=== PATIENT | female | born 1965 | race Caucasian/White ===

== ENCOUNTER → 2017-11-30 | Outpatient (CLI) | payer OTHER ==
[~2017-11-30] MED LIST: AMITRIPTYLINE H10 M3 PO; BUTRANS1 EAC1 TRANSDERM; BUTRANS1 EAC2 TRANSDERM; DOXEPIN HCL10 MG PO; IBUPROFEN 800800 M1 PO; NORCO 7.5-3251 EACH PO; OMEPRAZOLE20 MG PO; ONDANSETRON HCL4 M2 PO; XANAX 0.5 MG0.5 MG PO
--- NOTE | 2017-12-22 16:43 | PAINCON ---
[address] [address] PAIN MANAGEMENT CONSULTATION Name: YANDEL CORMIER Room: [facility] Kiera#: [id number] Admission: 11/30/17 Attend Phys: Kari Macias MD Discharge: Date of : 69 Report #: [id number] THIS REPORT FOR: //name// CC: Kari Allen DATE OF SERVICE: 12/13/2017 CHIEF COMPLAINT: Chronic pain. It hurt allover. HISTORY OF PRESENT ILLNESS: The patient is a 52-year-old female who has been referred to the pain clinic for evaluation. The patient states that she has had pain and discomfort with problems of pain because of fibromyalgia and others over the past 10 years. Notes that she hurts "from head to toe. She rates her pain at a 7/7-8/10. Notes that most activities, walking, lifting, standing, climbing stairs, bending can exacerbate her discomfort. By that medications, heat and rest can be of some benefit. Has used hydrocodone 7.5 mg 4 tablets daily. Also, finds that Xanax can be helpful with her situation. The patient states that she has heard of CBD oil. She gave this medication a try. She is not sure how much benefit she gleaned from it. She states that she has had physical therapy in the past on 2 occasions. She does suffer from depression. As a general anxiety history. She is bothered by irritable bowel syndrome. ALLERGIES: BUPROPION AND ESCITALOPRAM MEDICATIONS: Omeprazole 20 mg, hydrocodone 7.5 mg q. 8 hours, ondansetron 4 mg, Xanax 0.5 mg 1-2 tablets p.r.n., ibuprofen 800 mg q. 8 hours, Augmentin, and prednisone 20 mg. PAST MEDICAL HISTORY: 1. Anxiety. 2. Breast cancer. 3. Schizophrenia, chronic pain syndrome. 4. Fibromyalgia. 5. Gastroesophageal reflux disease. 6. Headaches.7 7. Irritable bowel. PAST SURGICAL HISTORY: LEEP cervix 2001, bilateral mastectomies on 01/11/2008, radiation treatment tamoxifen, and breast reconstruction in 2008. Back muscle moved to the anterior chest wall in 2008. SOCIAL HISTORY: She works at the [employer]. Her is being treated for bone cancer. Stopped smoking in 1995. 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 [place] [address] PAIN MANAGEMENT CONSULTATION Name: YANDEL CORMIER Room: [facility]#: [id number] Admission: 11/30/17 Attend Phys: Kari Macias MD Discharge: Date of : 69 Report #: [id number] REVIEW OF SYSTEMS: Questionnaire fatigue, weakness, headaches, wears glasses, blurred vision, cataract/6 glaucoma, hearing loss/ringing in the ears, chronic sinus problems, sore throat, voice changes, palpitations, swelling of feet, nausea, painful bowel movements, rectal bleeding and stool, abdominal pain, awakens at night to urinate, incontinence, memory loss, nervousness, depression, numbness and tingling sensation and frequent recurring headaches, lightheadedness, dizziness, rash, skin changes, change in hair and nails. MUSCULOSKELETAL: Joint pain, joint stiffness, weakness of muscles, muscle pain with cramps, back pain, difficulty walking. LABORATORY DATA: No laboratory tests were available at the time of our interview. PAIN CLINIC ASSESSMENT: 1. The patient is not being treated for osteoarthritis or rheumatoid arthritis. 2. Height 5 feet 4 inches. Weight 164 pounds, BMI is 28. 3. Vital signs: Blood pressure 114/74, heart rate 96, respiratory rate 16, room air saturation 98%, temperature 98.5. 4. Pain score 7/10. 5. Fall risk. The patient has not fallen in the last 3 months. 6. Blood thinner. The patient is not on a blood thinning medication. 7. History of hypertension. The patient is not being treated for hypertension. 8. Opioid therapy greater than 6 weeks. The patient has been on opioid therapy for quite some time. 9. Risk assessment tool. 10. Functional assessment tool. 11. Recreational drug use. The patient denies use of recreational drugs. 12. Tobacco: The patient smokes 20 years, has stopped in 1995. 13. Alcohol: The patient denies frequent use of alcoholic beverages. PHYSICAL EXAMINATION: GENERAL: The patient is a well-developed, well-nourished white female. Appears her stated age. HEENT: Normocephalic, atraumatic. Extraocular eye muscles intact. Mucous membranes are moist. NECK: Without adenopathy or JVD. HEART: Regular rate. S1, S2. LUNGS: Clear to auscultation. ABDOMEN: generally Nontender. MUSCULOSKELETAL: In the upper extremities showed to be 5/5 for the major muscle groups in the upper extremity. The patient has some generalized back pain as well as arm pain, low back pain is present. Has pursed described by the patient's lower extremity muscle strength is judged to be 5/5 for the major muscle groups in the lower extremity. The patient complains of some generalized pain in these areas. Complains of pain and discomfort in the left as well as a right forearm, posterior lumbar area as well as down the posterior portion of [place] [address] [address] PAIN MANAGEMENT CONSULTATION Name: YANDEL CORMIER Room: [facility] AND[facility] GrewalEstherOlga.#: [id number] Admission: 11/30/17 Attend Phys: Kari Macias MD Discharge: Date of : 69 Report #: [id number] her buttocks and into the calf pins and needle sensation in her feet. IMPRESSION: 1. Chronic pain syndrome. 2. Anxiety. 3. Breast cancer. 4. Schizophrenia, chronic pain syndrome. 5. Fibromyalgia. 6. Gastroesophageal reflux disease. 7. Headaches. 8. Irritable bowel. RECOMMENDATIONS: We discussed that [facility] rolling on opioid use. The patient has had pain and discomfort, which has been problematic over the last 10 years. She has had a mild increase in the amount of opioids that she is using a period of time. She initially started out at 5 mg hydrocodone and is at 7.5 mg at this juncture, has pain in her hip. She has had bilateral mastectomies and cancer treatment. Finds that her pain is quite problematic given the past years and in conjunction with family stressors. Her has bone cancer, brother is positive for bipolar syndrome. At this juncture, we will consider the patient suture. We will consider providing her opioid medications and enable her to stay gainfully employed. We have discussed the treatment for fibromyalgia, which includes physical therapy staying active 3 times a week with exercise, taking antidepressants, anticonvulsant medications such as Lyrica, gabapentin, Cymbalta, amitriptyline. The patient will call us. She will follow up in the pain clinic. She will call us if she has any concerns. We would like to thank you for letting us participate in her care. We hope she continues to improve. <ELECTRONICALLY SIGNED> By: Kari Macias MD 12/22/17 1643 [id number]. Christian Macias MD /nt
== END ==
LOC: M.PC 04:57
DX: G89.4 Chronic pain syndrome (principal); C50.919 Malignant neoplasm of unspecified site of unspecified female breast; K21.9 Gastro-esophageal reflux disease without esophagitis; F41.9 Anxiety disorder, unspecified; R51 Headache; M79.7 Fibromyalgia; F20.9 Schizophrenia, unspecified; K58.9 Irritable bowel syndrome, unspecified

== ENCOUNTER → 2017-12-14 | Outpatient (CLI) | payer OTHER ==
--- NOTE | 2017-12-22 16:41 | PAINCON ---
[address] [address] PAIN MANAGEMENT CONSULTATION Name: YANDEL CORMIER Room: [facility]RE[facility] Qureshi#: [id number] Admission: 12/14/17 Attend Phys: Kari Macias MD Discharge: Date of : 69 Report #: [id number] THIS REPORT FOR: //name// CC: Kari Allen DATE OF SERVICE: 12/14/2017 FOLLOWUP HISTORY: "I feel little better than I did at the last visit". FOLLOWUP HISTORY: The patient is a 52-year-old female who has been referred to the pain clinic for evaluation of chronic pain. The patient has pain and discomfort in her back, lower and upper as well as pain and discomfort in the posterior portion of her legs. She suffers from fibromyalgia. She continues to work on a regular basis. She has been using hydrocodone. She feels that the hydrocodone is helpful, takes about 3 times a day. Ibuprofen, Motrin, Zofran, and Xanax are helpful. The patient was given a dosing for use of Gralise. Gralise is a gabapentin medication, which is slowly released over a period of time, mostly for who are sensitive of medications find that this one is usually well tolerated. The patient had some problems with his medication and that it made her too sleepy. She states that she gets up quite early in the morning. Works at the [employer]. Had some problems navigating around in the morning with this medication on board. She stopped taking it. She has considered use of Lyrica and Cymbalta. Her insurance companies have declined that medication. ALLERGIES: No known drug allergies. CURRENT MEDICATIONS: Alprazolam 0.5 mg daily, hydrocodone 7.5 mg 1 p.o. q.8 hours p.r.n., ibuprofen 800 mg, omeprazole 20 mg b.i.d., and Zofran 4 mg. PAIN CLINIC ASSESSMENT: 1. The patient is not being treated for osteoarthritis or rheumatoid arthritis. 2. Height 5 feet 4 inches, weight 165 pounds, BMI is 28.4. 3. Vital signs: Blood pressure 106/68, heart rate 88, respiratory rate 16, room air saturation 100%, temperature 98.2. Pain intensity 11/02. 4. Fall risk. The patient has not fallen in the last 3 months. 5. Blood thinner. The patient is not on a blood thinning medication. 6. Opioid medications The patient receives her medications from one physician. 7. Risk assessment tool. 8. Functional assessment tool. 9. Recreational drug use. The patient denies use of recreational drugs. 10. Tobacco: The patient denies use of tobacco. 11. Alcohol: The patient denies frequent use of alcoholic beverages. PHYSICAL EXAMINATION: GENERAL: The patient is a well-developed, well-nour[place] [address] PAIN MANAGEMENT CONSULTATION Name: YANDEL CORMIER JOSE R [facility] [id number] Admission: 12/14/17 Attend Phys: Kari Macias MD Discharge: Date of : 69 Report #: [id number] her stated age. She is alert, oriented x3. Affect is appropriate. The patient is less emotional at this visit. She is not crying. States that things are better then they were last week when she initially saw us. HEENT: Normocephalic, atraumatic. Extraocular eye muscles intact. Sclerae nonicteric. Mucous membranes are moist. NECK: Good range of motion. The patient is without adenopathy. LUNGS: Clear to auscultation. HEART: Regular rate. S1, S2. ABDOMEN: Nontender. EXTREMITIES: Muscle strength is judged to be 5/5 for the major muscle groups in the upper extremity and 5+ for the lower extremities. 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 Deep tendon reflexes are trace bilaterally, trace at the knees, muscle symmetry is within normal limits in the upper as well as the lower extremities. IMPRESSION: 1. Chronic pain, fibromyalgia. 2. History of breast cancer, status post radiation and double mastectomy. 3. Anxiety. 4. GERD. 5. Headaches. 6. History of herpes zoster ophthalmicus. 7. Hypercholesterolemia. 8. Irritable bowel syndrome. 9. Nummular eczema. 10. Seasonal allergies. RECOMMENDATIONS: We discussed treatment options with the patient. At this juncture, we will try the patient more on a conservative approach. A script for hydrocodone has been written. The patient will also try amitriptyline 10 mg. She will try this on the weekend. Hopefully, she will find that she is able to tolerate this to gain benefit and not have side effects. Also, the patient will try buprenorphine patches to her skin. One patch per week. She will call us if she has any problems and a script for hydrocodone 7.5 mg 1 p.o. q. 8 hours has been written. We would like to thank you for letting us participate in her care. We hope she continues to improve. <ELECTRONICALLY SIGNED> By: Kari Macias MD 12/22/17 1641 [id number]. Christian Macias MD /nt
== END ==
LOC: M.PC 04:49
DX: M54.5 Low back pain (principal); G89.29 Other chronic pain; E78.00 Pure hypercholesterolemia, unspecified; K21.9 Gastro-esophageal reflux disease without esophagitis; F41.9 Anxiety disorder, unspecified; K58.9 Irritable bowel syndrome, unspecified; L30.9 Dermatitis, unspecified; J30.2 Other seasonal allergic rhinitis; R51 Headache; Z85.3 Personal history of malignant neoplasm of breast

== ENCOUNTER → 2018-01-11 | Outpatient (CLI) | payer OTHER ==
--- NOTE | 2018-02-07 10:00 | PAINCON ---
[address] [address] PAIN MANAGEMENT CONSULTATION Name: YANDEL CORMIER Room: [facility] Qureshi#: [id number] Admission: 01/11/18 Attend Phys: Kari Macias MD Discharge: Date of : 69 Report #: [id number] THIS REPORT FOR: //name// CC: Kari Allen DATE OF SERVICE: 01/11/2018 FOLLOWUP COMPLAINT: The pain medicine was working pretty well, but started to have some problems with it. 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 She has problems with chronic pain involving her low back. She also suffers from fibromyalgia. Continues to work on a regular basis. Does not find that her use of hydrocodone caused any clouding or problems with mentation, was using amitriptyline. It was felt that this medication caused the headache. She stopped taking it. Finds that her pain improves significantly with a combination of hydrocodone and Butrans (buprenorphine 10 mcg patches, place the patch on . Did relatively well and was doing quite well until about Wednesday. It was felt that the medication might have been a bit too strong. She took off the patch. Overall, she has felt the best that she had in quite some time with using that hydrocodone and Butrans patch combination. She feels that it might have been a bit too strong. ALLERGIES: No known drug allergies. CURRENT MEDICATIONS: Alprazolam 0.5 mg daily, hydrocodone 7.5 mg 1 p.o. every 8 hours., ibuprofen 800 mg, omeprazole 20 mg b.i.d., Zofran 4 mg. PAIN CLINIC ASSESSMENT: 1. The patient is not being treated for osteoarthritis or rheumatoid arthritis. 2. Height 5 feet 4 inches, weight is 164 pounds, BMI is 28. 3. Vital signs: Blood pressure 109/77, heart rate 83, respiratory rate 16, room air saturation 98%, and temperature 98.2. 4. Pain intensity 12/03. 5. Fall history: The patient has not fallen in the last 3 months. 6. Blood thinner. The patient is not on a blood thinning medication. 7. Opioids. The patient received medication from one source. 8. Risk assessment tool. 9. Functional assessment tool. 10. Recreational drug use. The patient denies use of recreational drugs. 11. Tobacco: The patient denies use of tobacco. 12. Alcoholic beverages. The patient denies use of alcoholic beverages. PHYSICAL EXAMINATION: GENERAL: The patient is a well-developed, well-n[place] [address] PAIN MANAGEMENT CONSULTATION Name: YANDEL CORMIER Room: [facility] Kiera#: [id number] Admission: 01/11/18 Attend Phys: Kari Macias MD Discharge: Date of : 69 Report #: [id number] her stated age. She is alert and oriented x3. Her affect is appropriate. HEAD, EYES, EARS, NOSE, AND THROAT: Normocephalic, atraumatic. Extraocular eye muscles intact. Sclerae nonicteric. Mucous membranes are moist. NECK: With good range of motion. The patient is without adenopathy or bruits. LUNGS: Clear to auscultation. HEART: Regular rate. S1, S2. ABDOMEN: Nontender. EXTREMITIES: Upper extremities, muscle strength is judged to be 5/5 for the major muscle groups and 5+ or 5/5 for the lower extremities. Judo Instructor strength is within normal limits. Deep tendon reflexes are trace bilaterally. Deep tendon reflexes at the knees are trace muscle symmetry in the lower extremity is normal. IMPRESSION: 1. Chronic pain. 2. Fibromyalgia. 3. History of breast cancer, status post radiation and double mastectomy. 4. Anxiety. 5. Gastroesophageal reflux disease. 6. Headaches. 7. History of herpes zoster ophthalmic distribution. 8. Hypercholesterolemia. 9. Irritable bowel syndrome. 10. Nummular eczema. 11. Seasonal allergies. RECOMMENDATIONS: We discussed treatment options with the patient. She felt that the Butrans patch was quite helpful. Feels that the latter days of its use may have built up in her system and cause some problems. At this juncture, we will decrease her dose by half. We will try 5 mcg dosing for 7 days. She will also be given a script for doxepin. If she finds that her medications are helpful, but still has some additional problems with sleeping and pain. We will try a doxepin pill. She will take 10 mg at bedtime. This medication has been helpful with the patient with chronic pain as well. She will call us if she has any problems with her medications. A script for her medications have been rewritten. One for hydrocodone 7.5 mg one p.o. t.i.d., doxepin 10 mg at bedtime, Butrans 5 mg weekly have been written and provided to the patient. <ELECTRONICALLY SIGNED> By: Kari Macias MD 02/07/18 1000 1139 [id number]. Christian Macias MD /PMT
== END ==
LOC: M.PC 05:54
DX: G89.29 Other chronic pain (principal); M79.7 Fibromyalgia; K21.9 Gastro-esophageal reflux disease without esophagitis; E78.00 Pure hypercholesterolemia, unspecified; K58.9 Irritable bowel syndrome, unspecified; J30.2 Other seasonal allergic rhinitis; L30.9 Dermatitis, unspecified; R51 Headache; F41.9 Anxiety disorder, unspecified; Z85.3 Personal history of malignant neoplasm of breast

== ENCOUNTER → 2018-02-10 | Outpatient (CLI) | payer OTHER ==
--- NOTE | 2018-03-09 16:08 | PAINCON ---
[address] [address] PAIN MANAGEMENT CONSULTATION Name: YANDEL CORMIER Room: [facility] Kiera#: [id number] Admission: 02/10/18 Attend Phys: Kari Macias MD Discharge: Date of : 69 Report #: [id number] THIS REPORT FOR: //name// CC: Kari Allen MD DATE OF SERVICE: 02/10/2018 FOLLOWUP HISTORY: The 5 mg Butrans patch was not very effective. FOLLOWUP HISTORY: The patient is a 52-year-old female who has been seen in the pain clinic because of chronic pain involving her low back. She does suffer from fibromyalgia. She has been using hydrocodone as well as nonsteroidal anti-inflammatory medications. Continues to have pain, which has been problematic. She was tried on Butrans patch 10 mcg. It was felt that medication was little too much. Did have some side effects as a result of it. We decreased her to 5 mg Butrans patch q. week. She felt that this medication was not as effective. She has tried recently started, doxepin 10 mg at bedtime. She is not having any problems with it at this juncture. She is awaiting a longer, used to note its efficacy. She has returned today for renewal of her medications. 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 She states that this medication is not causing any problems with separation. She is alert and able to think clearly. ALLERGIES: No known drug allergies. MEDICATIONS: Alprazolam 0.5 mg daily, hydrocodone 7.5 mg 1 p.o. q.8 hours p.r.n., ibuprofen 800 mg, omeprazole 20 mg b.i.d., Zofran 4 mg, Butrans 5 mg p.o. PAIN CLINIC ASSESSMENT/PQRS: 1. The patient is not being treated for osteoarthritis or rheumatoid arthritis. 2. Height 5 feet 4 inches, weight 167 pounds, BMI is 28.8. 3. Vital Signs: Blood pressure 108/69, heart rate 80, respiratory rate 16, room air saturation 100%, temperature 98.2. 4. Pain intensity 8/10. 5. Fall history: The patient has not fallen in the last 3 months. 6. Blood thinner. The patient is not on a blood thinning medication. 7. Opioids. The patient is not on it. The patient receives her opioid medications from one source, the pain clinic at this juncture. 8. Risk assessment tool. 9. Functional assessment tool. 10. Recreational drug use. The patient denies use of recreational drugs. 11. Tobacco: The patient denies use of tobacco. 12. Alcohol: The patient denies [place] [address] PAIN MANAGEMENT CONSULTATION Name: YANDEL CORMIER JOSE R Room: [facility]#: [id number] Admission: 02/10/18 Attend Phys: Kari Macias MD Discharge: Date of : 69 Report #: [id number] PHYSICAL EXAMINATION: GENERAL: The patient is a well-developed, well-nourished white female. Appears stated age. She is alert and oriented x 3. Her affect is appropriate. HEENT: Normocephalic, atraumatic. Extraocular eye muscles intact. Sclerae nonicteric. Mucous membranes are moist. NECK: With good range of motion. No adenopathy or JVD. LUNGS: Clear to auscultation. HEART: Regular rate. S1, S2. ABDOMEN: Nontender. Bowel sounds present. EXTREMITIES: Upper extremity muscle strength is judged to be 5/5 for the major muscle groups. Lower extremity muscle strength is judged to be 5/5 for the lower extremity. Deep tendon reflexes were trace bilaterally. Deep tendon reflexes were trace at the knees with symmetry. IMPRESSION: 1. Chronic pain. 2. Fibromyalgia. 3. History of breast cancer, status post radiation and double mastectomy. 4. Anxiety. 5. Gastroesophageal reflux disease. 6. Headaches. 7. History of herpes ophthalmic distribution. 8. Hypercholesterolemia. 9. Irritable bowel syndrome. 10. Nummular eczema 11. Seasonal allergies. RECOMMENDATIONS: We discussed treatment options with the patient. At this juncture, we will have the patient take 7.5 mg of Butrans. A patch has been written. The patient has recently started the use of doxepin. Hopefully, this medication will be helpful as well. She is not having any side effects at this point. We have rewritten the script for her medications of [place] to 7.5 mg 1 p.o. q. 4-6 hours, Butrans patch will be 7.5 mcg weekly, doxepin 10 mg at bedtime as tolerated. We would like to thank you for letting us participate in her care. We hope she continues to improve. <ELECTRONICALLY SIGNED> By: Kari Macias MD 03/09/18 1608 1139 1937N. Christian Macias MD /BARBARA
== END ==
LOC: M.PC 02-08 10:20
DX: G89.29 Other chronic pain (principal); M54.5 Low back pain; E78.00 Pure hypercholesterolemia, unspecified; K21.9 Gastro-esophageal reflux disease without esophagitis; F41.9 Anxiety disorder, unspecified; M79.7 Fibromyalgia; L30.0 Nummular dermatitis; R51 Headache; J30.2 Other seasonal allergic rhinitis; K58.9 Irritable bowel syndrome, unspecified; Z79.899 Other long term (current) drug therapy; Z85.3 Personal history of malignant neoplasm of breast

== ENCOUNTER → 2018-03-10 | Outpatient (CLI) | payer OTHER ==
--- NOTE | ~2018-03-10 | PAINCON ---
[address] [address] PAIN MANAGEMENT CONSULTATION Name: YANDEL CORMIER [facility] [id number] Admission: 03/10/18 Attend Phys: Kari Macias MD Discharge: Date of : 69 Report #: [id number] THIS REPORT FOR: //name// CC: Kari Allen MD DATE OF SERVICE: 03/10/2018 FOLLOWUP COMPLAINT: "The 7.5 mg is better." HISTORY OF PRESENT ILLNESS: The patient is a 52-year-old female who has been followed in the Pain Clinic because of chronic pain involving her low back. She suffers from fibromyalgia. She has found that hydrocodone in conjunction with the Butrans patch has been helpful. 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 She works at the [employer]. Her mentation is clear. She would like to continue with her medications. She rates her pain as a 7/10, but notes a clear improvement in her condition. ALLERGIES: No known drug allergies. MEDICATIONS: Alprazolam 0.5 mg daily, hydrocodone 7.5 mg 1 p.o. q. 8 hours, ibuprofen 800 mg, omeprazole 20 mg b.i.d., Zofran 4 mg, ____. PAIN CLINIC ASSESSMENT AND PQRS: 1. The patient is not being treated for osteoarthritis or rheumatoid arthritis. 2. Height 5 feet 4 inches, weight 170 pounds, BMI is 29.2. 3. Vital signs: Blood pressure 113/78, heart rate 78, respiratory rate 18, room air saturation 100%, temperature 97.5. 4. Pain intensity: 7/10. 5. Fall history: The patient has not fallen in the last 3 months. 6. Blood thinner: The patient is not on a blood thinning medication. 7. Opioids: The patient is receiving her opioid medication from one source from the Pain Clinic. 8. Risk assessment tool. 9. Functional assessment tool. 10. Recreational drug use: The patient denies use of recreational drugs. 11. Tobacco: The patient denies use of tobacco. 12. Alcohol: The patient denies use of alcoholic beverages. PHYSICAL EXAMINATION: GENERAL: The patient is a well-developed, well-nourished, white female. Appears her stated age. She is alert and oriented x 3. Her affect is appropriate. She seems somewhat happy. HEENT: Normocephalic, atraumatic. Extraocular eye [place] [address] PAIN MANAGEMENT CONSULTATION Name: YANDEL CORMIER Room: [facility]#: [id number] Admission: 03/10/18 Attend Phys: Kari Macias MD Discharge: Date of : 69 Report #: [id number] nonicteric. Mucous membranes are moist. NECK: Without adenopathy or JVD. LUNGS: Clear to auscultation. HEART: Regular rate. S1 and S2. ABDOMEN: Nontender. Bowel sounds present. EXTREMITIES: Upper extremity muscle strength is judged to be 5/5 for the major muscle groups in the upper extremity. Lower extremity muscle strength is judged to be 5/5 for the lower extremity muscles. IMPRESSION: 1. Chronic pain. 2. Fibromyalgia. 3. History of breast cancer, status post radiation and double mastectomy. 4. Anxiety. 5. Gastroesophageal reflux. 6. Headaches. 7. 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 8. Hypercholesterolemia. 9. Irritable bowel syndrome. 10. Nummular eczema. 11. Seasonal allergies. RECOMMENDATIONS: We discussed treatment options with the patient. At this juncture, we will continue with the Butrans patch, we will continue with it at 7.5 mg per day. She felt that this medication was helpful. A script for renewal of her medication has been written. She will call us if she has any concerns. If she finds that she has any problems with mentation, she will stop the medication. A script for hydrocodone 7.5 mg has been rewritten as well. She will continue with the Butrans 1 patch every 7 days. We would like to thank you for letting us participate in her care. We hope she continues to improve. A script for doxepin 10 mg at bedtime has also been written. By: [id number]. Christian Macias MD /nt
== END ==
LOC: M.PC 05:38
DX: M79.7 Fibromyalgia (principal); G89.29 Other chronic pain; Z85.3 Personal history of malignant neoplasm of breast; F41.9 Anxiety disorder, unspecified; R51 Headache; K21.9 Gastro-esophageal reflux disease without esophagitis; K58.9 Irritable bowel syndrome, unspecified; L30.0 Nummular dermatitis; J30.2 Other seasonal allergic rhinitis; E78.00 Pure hypercholesterolemia, unspecified; B02.39 Other herpes zoster eye disease

== ENCOUNTER → 2018-04-07 | Outpatient (CLI) | payer OTHER ==
--- NOTE | ~2018-04-07 | PAINCON ---
[address] [address] PAIN MANAGEMENT CONSULTATION Name: YANDEL CORMIER Room: [facility] Kiera#: [id number] Admission: 04/07/18 Attend Phys: Kari Macias MD Discharge: Date of : 69 Report #: [id number] THIS REPORT FOR: //name// CC: Kari Allen DATE OF SERVICE: 04/07/2018 FOLLOWUP COMPLAINT: Here for medication renewal, pain is about 7/10. 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 She returns today indicating that 7.5 mg Butrans does not seem to be as effective as a 10 mg, but she is not having the side effects. Feels that the doxepin has caused no issues. Feels that the hydrocodone is helpful and she is doing reasonably well. She rates her pain as 7/10. She continues to have some pain in the low back as well as into her legs bilaterally. As you may recall, she suffers from fibromyalgia. She is able to perform her duties without clouding of her sensorium at the [facility]. Feels that the medications overall working reasonably well and would like to continue their use. ALLERGIES: No known drug allergies. CURRENT MEDICATIONS: Alprazolam 0.5 mg daily, hydrocodone 7.5 mg 1 p.o. q. 8 hours, ibuprofen 800 mg, omeprazole 20 mg b.i.d., Zofran 4 mg, and Butrans 7.5 mcg ____ weekly. PAIN CLINIC ASSESSMENT/PQRS: 1. The patient is not being treated for osteoarthritis or rheumatoid arthritis. 2. Height 5 feet 4 inches, weight 166 pounds, BMI is 28.6. 3. Vital signs: Blood pressure 109/69, heart rate 83, respiratory rate 16, room air saturation 100%, temperature 97.8. Pain intensity score is 7/10. 4. Fall history: The patient has not fallen in the last 3 months. 5. Blood thinner. The patient is not on a blood thinning medication. 6. Opioids. The patient is receiving her opioid medications from one source, the pain clinic. 7. Risk assessment tool, low for opioid use. 8. Functional assessment tool. 9. Recreational drug use. The patient denies use of recreational drugs. 10. Tobacco: The patient denies use of tobacco. 11. Alcohol: The patient denies use of alcoholic beverages. PHYSICAL EXAMINATION: GENERAL: The patient is a well-developed, well-nourished white female. Appears her stated age. She is alert and oriented x 3. Her affect is appropriate. [place] [address] PAIN MANAGEMENT CONSULTATION Name: YANDEL CORMIER Room: [facility]#: [id number] Admission: 04/07/18 Attend Phys: Kari Macias MD Discharge: Date of : 69 Report #: [id number] HEENT: Normocephalic, atraumatic. Extraocular eye muscles intact. Sclerae nonicteric. Mucous membranes are moist. NECK: Without adenopathy or JVD. LUNGS: Clear to auscultation. HEART: Regular rate. S1, S2. ABDOMEN: Nontender. Bowel sounds present. EXTREMITIES: Upper extremity muscle strength is judged to be 5/5 for the major muscle groups in the upper extremity. Lower extremity muscle strength is judged to be 5/5 for the lower muscles. IMPRESSION: 1. Chronic pain. 2. Fibromyalgia. 3. History of breast cancer, status post radiation and double mastectomy. 4. Anxiety. 5. Gastroesophageal reflux. 6. Headaches. 7. 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 8. Hypercholesterolemia. 9. Irritable bowel syndrome. 10. Nummular eczema. 11. Seasonal allergy. RECOMMENDATIONS: We discussed treatment options with the patient. She feels her medications are working reasonably well. It is not influencing her thinking. She is able to think clearly. 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 We will continue with her current medications. A script for medication has been renewed. She will call us if she has any concerns. We would like to thank you for letting us participate in her care. We hope she continues to improve. By: [id number]. Christian Macias MD /avi
== END ==
LOC: M.PC 05:31
DX: G89.29 Other chronic pain (principal); M79.7 Fibromyalgia; R51 Headache; K21.9 Gastro-esophageal reflux disease without esophagitis; E78.00 Pure hypercholesterolemia, unspecified; K58.9 Irritable bowel syndrome, unspecified; L30.0 Nummular dermatitis; F41.9 Anxiety disorder, unspecified; J30.2 Other seasonal allergic rhinitis; Z86.19 Personal history of other infectious and parasitic diseases; Z85.3 Personal history of malignant neoplasm of breast; Z79.899 Other long term (current) drug therapy

== ENCOUNTER → 2019-05-23 | Outpatient (CLI) | payer OTHER ==
[~2019-05-23] MED LIST changes: +BENTYL 10 MG CA10 M1 PO; +HYDROCODONE-AP1 EA11 PO; +OMEPRAZOLE 20 M20 M1 PO
--- NOTE | ~2019-05-23 | PAINCON ---
[address] [address] PAIN MANAGEMENT CONSULTATION Name: YANDEL CORMIER Room: [facility] Kiera#: [id number] Admission: 05/23/19 Attend Phys: Kair Macias MD Discharge: Date of : 69 Report #: [id number] THIS REPORT FOR: //name// CC: Kari Allen DATE OF SERVICE: 05/23/2019 CHIEF COMPLAINT: Chronic pain in the low back and down in both legs. HISTORY: The patient is a 54-year-old female who has been seen and followed in the pain clinic because of chronic pain. She has returned today for renewal of her medications. She has used Butrans patches. They were helpful initially, but not as helpful as time progressed. She no longer is using that medication. She found doxepin helpful. At this juncture, she is no longer using that medication. It was noticed that her pain has worsen over the last few weeks. The weather has been a problem. She notes that that has definitely impacted her pain. She finds that hydrocodone has been working well. Finds that her pain is worse in the morning. Rates her pain as a 7/10 at this juncture. She feels that her pain is about 70% improved with the current use of [place] 7.5 mg tablets. She has returned and would like to continue with that medication. ALLERGIES: No known drug allergies. CURRENT MEDICATIONS: Alprazolam 0.5 mg daily, hydrocodone 7.5 mg 1 p.o. q.i.d. or t.i.d., ibuprofen 800 mg, omeprazole 20 mg b.i.d., Zofran 4 mg. PAIN CLINIC ASSESSMENT AND PQRS: 1. The patient is not being treated for osteoarthritis or rheumatoid arthritis. 2. Height 5 feet 4 inches, weight 162 pounds, BMI is 27.9. 3. Vital signs: Blood pressure 118/64, heart rate 81, respiratory rate 16, room air saturation is 100%, temperature 98.2. 4. The pain score was 7/10. 5. Fall history: The patient has not fallen in the last 3 months. 6. Blood thinner. The patient is not on a blood thinning medication. 7. Opioids. The patient received medication from one source, the pain clinic. 8. Risk assessment tool, low for opioid use. 9. Functional assessment tool. 10. Recreational drug use: The patient denies. 11. Tobacco: The patient denies use of tobacco. 12. Alcohol. The patient denies use of alcoholic beverages. PHYSICAL EXAMINATION: GENERAL: The patient is a well-developed, well-nourished white female. Appears her stated age. She is alert and oriented x 3. Her affect is appropriate[place] [address] PAIN MANAGEMENT CONSULTATION Name: YANDEL CORMIER JOSE R Room: [facility]#: [id number] Admission: 05/23/19 Attend Phys: Kari Macias MD Discharge: Date of : 69 Report #: [id number] HEENT: Normocephalic, atraumatic. Extraocular eye muscles intact. Sclerae nonicteric. Mucous membranes are moist. NECK: Without adenopathy or JVD. EXTREMITIES: Upper extremity muscle strength judged to be 5/5 for the major muscle groups in the upper extremity. Lower extremity muscle strength judged to be 5/5 for the major muscle groups. The patient continues to have pain in her lower back with pain that radiates down into her legs bilaterally. IMPRESSION: 1. Chronic pain. 2. Fibromyalgia. 3. Breast cancer, status post radiation and double mastectomy. 4. Anxiety. 5. Gastroesophageal reflux. 6. Headaches. 7. 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 8. Hypercholesterolemia. 9. Irritable bowel syndrome. 10. Nummular eczema. 11. Seasonal allergy. RECOMMENDATIONS: We discussed treatment options with the patient. At this juncture, she feels that the ____ 7.5 mg, helpful. She did use doxepin. At this point, she is not using it and feels that it was helpful, but not enough that she would want to continue it at this juncture. She did try Butrans patches. She feels overall that the [place] medication is more effective and would like to continue with that. She is aware that opioid medications can be problematic for some people. As time progresses, one can develop a tolerance. The patient does not show any signs of oversedation. She has taken the medication as prescribed. States that she is able to perform her activities with a clear sensorium. It is not impacting her ability to do her job. She also finds that the Bentyl is helpful, a script for this medication 10 mg has been written. The patient will also continue with omeprazole 20 mg one p.o. b.i.d. We would like to thank you for letting us participate in her care. We hope she continues to improve. By: [id number]. Christian Macias MD /BARBARA
== END ==
LOC: M.PC 09:57
DX: M54.5 Low back pain (principal); G89.29 Other chronic pain; M79.7 Fibromyalgia; F41.9 Anxiety disorder, unspecified; K21.9 Gastro-esophageal reflux disease without esophagitis; R51 Headache; E78.00 Pure hypercholesterolemia, unspecified; C50.919 Malignant neoplasm of unspecified site of unspecified female breast

== ENCOUNTER → 2019-06-20 | Outpatient (CLI) | payer OTHER ==
--- NOTE | 2019-07-11 09:57 | PAINCON ---
[address] [address] PAIN MANAGEMENT CONSULTATION Name: YANDEL CORMIER Room: [facility]..#: [id number] Admission: 06/20/19 Attend Phys: Kari Macias MD Discharge: Date of : 69 Report #: [id number] THIS REPORT FOR: //name// cc: Sandeep Allen MD, Tuongvan T. MD ~ THIS REPORT FOR: //name// CC: Kari Allen MD DATE OF SERVICE: 06/20/2019 PRIMARY PHYSICIAN: Sandeep Allen MD FOLLOWUP: The medications are helpful and I have returned for renewal. HISTORY: The patient is a 54-year-old female who has been followed in the pain clinic. As you may recall, she suffers from chronic pain, low back area. She has continued to experience pain that radiates down into both legs. She has found that the patches are helpful. Butrans patches have been efficacious. She has returned today for renewal of her medication. She rates her pain as a 7/10 today. She feels that the [place] medication is more helpful than the Butrans and would like to continue the use of [place]. Notes her pain is worse with walking, sitting and activities of daily living. Pain improves with use of hot and cold. Also, it improves with use of rest. Feels that her pain continues to be helpful when she is able to continue her activity. 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 ALLERGIES: No known drug allergies. CURRENT MEDICATIONS: Alprazolam 0.5 mg daily, hydrocodone 7.5 mg 1 p.o. q.i.d., ibuprofen 800 mg, omeprazole 20 mg b.i.d., Zofran 4 mg. PAIN CLINIC ASSESSMENT AND PQRS: 1. The patient is not being treated for osteoarthritis or rheumatoid arthritis. 2. Height 5 feet 4 inches, weight 161 pounds, BMI is 28.4. 3. Vital Signs: Blood pressure 110/69, heart rate is 83, respiratory rate 18, room air saturation 100%, temperature 98.5. 4. Pain intensity 7/10. 5. Fall history: The patient has not fallen in the last 3 months. 6. Blood thinner. The patient is not on a blood thinning medication. 7. Opioids. The patient received medication from [facility]. 8. Risk assessment tool: Low for opioid use. 9. Functional assessment tool: Reviewed. 10. Recreational drug use: The patient denies. 11. Tobacco: The [place] [address] PAIN MANAGEMENT CONSULTATION Name: CORMIERYANDEL Room: [facility]#: [id number] Admission: 06/20/19 Attend Phys: Kari Macias MD Discharge: Date of : 69 Report #: [id number] 12. Alcohol. The patient denies use of alcoholic beverages. PHYSICAL EXAMINATION: GENERAL: The patient is a well-developed, well-nourished white female. She appears her stated age. She is alert and oriented x 3. Her affect is appropriate. Speech is fluent. HEENT: Normocephalic, atraumatic. Extraocular eye muscles intact. Sclerae nonicteric. Mucous membranes are moist. NECK: Without adenopathy or JVD. HEART: Regular rate. ABDOMEN: Nontender. EXTREMITIES: Upper extremity muscle strength 5/5 for the major muscle groups. Lower extremity muscle strength judged to be 5/5 for the major muscle groups. The patient continues to have pain in the lower portion of her back that radiates down into her legs bilaterally. IMPRESSION: 1. Chronic pain. 2. Fibromyalgia. 3. Breast cancer, status post radiation and bilateral mastectomy. 4. Anxiety. 5. Gastroesophageal reflux. 6. Headaches. 7. 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 8. Hypercholesterolemia. 9. Irritable bowel syndrome. 10. Nummular Eczema. 11. Seasonal allergies. RECOMMENDATIONS: We discussed treatment options with the patient. At this juncture, she feels her medications are helpful. She continues to be gainfully employed. She feels that the hydrocodone medication is helpful. It does not cause any problems with her thinking. Her sensorium remains clear. She is aware that opioid medications can become less effective as time goes on secondary to development of tolerance. She is having no problems with oversedation. We will continue with her medication. A script for the medication has been rewritten. The patient will continue using [place] 7.5 mg 1 p.o. t.i.d. She will also continue with doxepin 10 mg at bedtime. She will call us if she has any concerns. We would like to thank you for letting us participate in her care. We hope she continues to improve. <ELECTRONICALLY SIGNED> By: Kari Macias MD 07/11/19 0957 [id number]. Christian Macias MD /nt
== END ==
LOC: M.PC 07:57
DX: G89.29 Other chronic pain (principal); M79.7 Fibromyalgia; F41.9 Anxiety disorder, unspecified; K21.9 Gastro-esophageal reflux disease without esophagitis; R51 Headache; E78.00 Pure hypercholesterolemia, unspecified

== ENCOUNTER → 2019-07-20 | Outpatient (CLI) | payer OTHER ==
--- NOTE | 2019-07-21 09:01 | PAINCON ---
[address] [address] PAIN MANAGEMENT CONSULTATION Name: YANDEL CORMIER Room: [facility]..#: [id number] Admission: 07/20/19 Attend Phys: Kari Macias MD Discharge: Date of : 69 Report #: [id number] THIS REPORT FOR: //name// cc: Sandeep Allen MD, Tuongvan T. MD ~ THIS REPORT FOR: //name// CC: Kari Allen MD DATE OF SERVICE: 07/20/2019 FOLLOWUP: Medication continues to be helpful. Still having pain in the low back area. HISTORY: The patient is a 54-year-old female who has been followed in the pain clinic. Continues to have pain and discomfort in the low back area. She has history of fibromyalgia. 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 She finds that her medications are helpful. Did not cause any problems with confusion. She has returned today for renewal of the medication. She feels that the Butrans patches continue to be efficacious. She is aware of the COVID-19 suggestions. She is trying to stay socially isolated. Notes that the pain can be exacerbated with walking and other activities of daily living. Has used Hot and Cold Compress to help the pain. She has returned today for renewal of her medications. The patient has had some pain in the low back area involving her left leg. She has had some numbness in the area of her abdomen and upper thighs on a couple of occasions. She has gone to a chiropractor. ALLERGIES: No known drug allergies. CURRENT MEDICATIONS: Alprazolam 0.5 mg daily, hydrocodone 7.5 mg 1 p.o. q.i.d., ibuprofen 800 mg, omeprazole 20 mg b.i.d., Zofran 4 mg, Bentyl 10 mg t.i.d. The patient has found that the hydrocodone appears to be more helpful than the Butrans was and has been taking this medication. PAIN CLINIC ASSESSMENT AND PQRS: 1. The patient is not being treated for osteoarthritis or rheumatoid arthritis. 2. Height 5 feet 4 inches, weight 163 pounds, BMI is 28. 3. Vital Signs: Blood pressure is 116/76, heart rate 79, respiratory rate 16, room air saturation 99%, temperature 97.8. 4. Pain intensity is 5-6/10. 5. Fall history: The patient has not fallen in the last 3 months. 6. Blood thinner. The patient is not on a blood thinning medication. 7. Opioids. The patient receives medication from one source the pain clinic. 8. Risk assessment tool, [place] [address] PAIN MANAGEMENT CONSULTATION Name: YANDEL CORMIER Room: [facility]#: [id number] Admission: 07/20/19 Attend Phys: Kari Macias MD Discharge: Date of : 69 Report #: [id number] 9. Functional assessment tool, reviewed. 10. Recreational drug use: The patient denies. 11. Tobacco: The patient denies use of tobacco. 12. Alcohol: The patient rarely drinks alcoholic beverages. PHYSICAL EXAMINATION: GENERAL: The patient is a well-developed, well-nourished white female. Appears her stated age. She is alert and oriented x 3. Her affect is appropriate. Speech is fluent. HEENT: Normocephalic, atraumatic. Extraocular eye muscles intact. Sclerae nonicteric. Mucous membranes are moist. NECK: Without adenopathy or JVD. HEART: Regular rate. ABDOMEN: Nontender. EXTREMITIES: Upper extremity muscle strength judged to be 5/5 for the major muscle groups in the upper extremity. Lower extremity muscle strength judged to be 5/5 for the major muscle groups. The patient continues to have pain that radiates down into her legs bilaterally. IMPRESSION: 1. Chronic pain. 2. Fibromyalgia. 3. Breast cancer, status post radiation and bilateral mastectomy. 4. Anxiety. 5. Gastroesophageal reflux. 6. Headaches. 7. 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 8. Hypercholesterolemia. 9. Irritable bowel syndrome. 10. Nummular eczema. 11. Seasonal allergies. RECOMMENDATIONS: We discussed treatment options with the patient. She feels that her medications are helpful. She feels that the hydrocodone medication is beneficial. She is able to conduct her activities of daily living with less discomfort. 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 Keeps her medications in a guarded area. She is aware that opioid medications can become less effective as time goes on secondary to development of tolerance. She is aware that patients can become dependent on narcotic medications and she is taking the medication as prescribed. We will continue with her current medical regimen and the patient will call us if she has any concerns. [address] [place] [address] PAIN MANAGEMENT CONSULTATION Name: YANDEL CORMIER Room: [facility]#: [id number] Admission: 07/20/19 Attend Phys: Kari Macias MD Discharge: Date of : 69 Report #: [id number] We would like to thank you for letting us participate in her care. We hope she continues to improve. <ELECTRONICALLY SIGNED> By: Kari Macias MD 07/21/19 0901 [id number] 1400N. Christian Macias MD /nt
== END ==
LOC: M.PC 02:46
DX: M54.5 Low back pain (principal); M79.7 Fibromyalgia; C50.919 Malignant neoplasm of unspecified site of unspecified female breast; F31.9 Bipolar disorder, unspecified; R51 Headache; K21.9 Gastro-esophageal reflux disease without esophagitis; E78.00 Pure hypercholesterolemia, unspecified; K58.9 Irritable bowel syndrome, unspecified; J30.2 Other seasonal allergic rhinitis; L30.8 Other specified dermatitis; F11.20 Opioid dependence, uncomplicated; Z79.84 Long term (current) use of oral hypoglycemic drugs; Z79.899 Other long term (current) drug therapy

== ENCOUNTER → 2019-08-17 | Outpatient (CLI) | payer OTHER ==
[~2019-08-17] MED LIST changes: +MOBIC15 MG PO
--- NOTE | ~2019-08-17 | PAINCON ---
[address] [address] PAIN MANAGEMENT CONSULTATION Name: [facility]ANDEL CORMIER [id number] Admission: 08/17/19 Attend Phys: Kari Macias MD Discharge: Date of : 69 Report #: [id number] THIS REPORT FOR: //name// cc: Sandeep Allen MD, Tuongvan T. MD ~ THIS REPORT FOR: //name// CC: Kari Allen DATE OF SERVICE: 08/17/2019 CHIEF COMPLAINT: Low back pain and right leg pain. HISTORY: The patient is a 54-year-old female who has been followed in the pain clinic. As you may recall, she suffers from chronic low back pain. She has noticed a in her pain. She was sweeping and doing other activities. This was about a week ago. She then noted pain and discomfort in the lower portion of her back, which was somewhat problematic. She states that she was experiencing a significant amount of discomfort for about a week. She has been engaged in more activity. She was moving boxes. She now has pain in her left hip. She rates it as a 4-5/10. She has had some pain in the left groin area as well. She feels that her medications are helpful. She does work at the [employer]. She is in the [place] areas episodically. She has returned today for renewal of her medications. ALLERGIES: SULFA, AMOXICILLIN, SULFACETAMIDE, . CURRENT MEDICATIONS: Lipitor 10 mg, Butrans patch 7.5 mg, Voltaren gel to the affected area 4 times, Neurontin 300 mg t.i.d. nerve pain, hydroxyzine 50 mg t.i.d., Zestril 10 mg, tramadol 50 mg 2 tablets at bedtime, trazodone 100 mg at bedtime, escitalopram. PAIN CLINIC ASSESSMENT AND PQRS: 1. The patient is not being treated for osteoarthritis or rheumatoid arthritis. 2. Height 5 feet 4 inches, weight 161 pounds, BMI is 27.9. 3. Vital Signs: Blood pressure 110/83, heart rate 89, respiratory rate 16, room air saturation is 99, temperature 98.7. Pain intensity is 4-5/10. 4. Fall history: The patient has not fallen in the last 3 months. 5. Blood thinner. The patient is not on a blood thinning medication. 6. Hypertension. The patient is not being treated for hypertension. 7. Opioid therapy 6 weeks. The patient receives medication from the pain clinic. 8. Risk assessment tool, low for opioid use. 9. Functional assessment tool reviewed. 10. Recreational drug use: [place] [address] PAIN MANAGEMENT CONSULTATION Name: YANDEL CORMIER Room: [facility]#: [id number] Admission: 08/17/19 Attend Phys: Kari Macias MD Discharge: Date of : 69 Report #: [id number] 11. Alcohol: The patient rarely drinks alcoholic beverages. 12. Tobacco: The patient denies. PHYSICAL EXAMINATION: GENERAL: The patient is a well-developed, well-nourished white female. Appears her stated age. She is alert and oriented x 3. Her affect is appropriate. Speech is fluent. HEENT: Normocephalic, atraumatic. Extraocular eye muscles intact. Sclerae nonicteric. Mucous membranes are moist. NECK: Without adenopathy or JVD. HEART: Regular rate. ABDOMEN: Nontender. EXTREMITIES: Upper extremity muscle strength judged to be 5/5 for the major muscle groups in the upper extremity. The patient has some pain and discomfort in lower portion of the back and muscle strength is judged to be 5/5 for the major muscle groups in the lower extremity. The patient has pain and discomfort in the left posterior superior iliac spine area. Palpation in the left area causes a reproduction of the pain and discomfort, which the patient complained with some localization and withdrawal from the palpation of the trigger point. IMPRESSION: 1. Myofascial pain, left low back area with increased discomfort after lifting boxes and after straining her back. 2. Fibromyalgia. 3. Breast cancer, status post radiation and bilateral mastectomy. 4. Anxiety. 5. Gastroesophageal reflux. 6. Headaches. 7. 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 8. Hypercholesterolemia. 9. Irritable bowel syndrome. 10. Nummular eczema. 11. Seasonal allergies. RECOMMENDATIONS: We discussed treatment options with the patient. At this juncture, she feels that her medications are working reasonably well. We have renewed the medications. We will continue with hydrocodone 7.5 mg 1 p.o. t.i.d. She will also continue with the Bentyl 10 mg t.i.d. She will continue with omeprazole. She feels that heat and cold can be helpful. We explained the importance of stretching because of trigger points. The patient has a trigger point in the low back area. We indeed recommend that she try using a tennis ball in rolling on this to help relax the muscles in the low back area. She [facility] [address] [place] [address] PAIN MANAGEMENT CONSULTATION Name: YANDEL CORMIER Room: [facility]#: [id number] Admission: 08/17/19 Attend Phys: Kari Macias MD Discharge: Date of : 69 Report #: [id number] will call us if she has any complaints. A script for hydrocodone 7.5 mg 1 p.o. t.i.d. has been sent to her pharmacy along with omeprazole 20 mg 1 tablet daily. By: [id number]. Christian Macias MD /[facility]
== END ==
LOC: M.PC 05:43
DX: M79.18 Myalgia, other site (principal); M54.5 Low back pain; F41.9 Anxiety disorder, unspecified; K21.9 Gastro-esophageal reflux disease without esophagitis; E78.00 Pure hypercholesterolemia, unspecified; K58.9 Irritable bowel syndrome, unspecified; Z85.3 Personal history of malignant neoplasm of breast; Z79.899 Other long term (current) drug therapy; Z88.2 Allergy status to sulfonamides; Z88.1 Allergy status to other antibiotic agents

== ENCOUNTER → 2019-09-14 | Outpatient (CLI) | payer OTHER ==
--- NOTE | 2019-09-25 09:22 | PAINCON ---
[facility] [address] [place] [address] PAIN MANAGEMENT CONSULTATION Name: YANDEL CORMIER Room: [facility]#: [id number] Admission: 09/14/19 Attend Phys: Kari Macias MD Discharge: Date of : 69 Report #: [id number] THIS REPORT FOR: //name// cc: Sandeep Allen MD, Tuongvan T. MD ~ THIS REPORT FOR: //name// CC: Kari Allen DATE OF SERVICE: 09/14/2019 CHIEF COMPLAINT: Continued low back and leg pain. HISTORY: The patient is a 54-year-old female who has been followed in the pain clinic because of chronic low back pain. She feels that she had a rough week last week. She noted some dizziness in the morning. She notes that activities such as sweeping can exacerbate her discomfort. Walking, sitting, cold temperatures can be problematic. Notes that her pain improves when she takes her medication, she also gets benefit from using hot and cold. Rest and stretching exercised are beneficial and she continues to do these. She is concerned about the COVID-19. 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 ALLERGIES: SULFA, AMOXICILLIN, SULFACETAMIDE. CURRENT MEDICATIONS: Lipitor 10 mg, Butrans patch 7.5 mg, Voltaren gel to the affected area 4 times, Neurontin 300 mg t.i.d., nerve pain, hydroxyzine 50 mg t.i.d., Zestril 10 mg, tramadol 50 mg 2 tablets at bedtime, trazodone 100 mg at bedtime, escitalopram. PAIN CLINIC ASSESSMENT/PQRS: 1. The patient is not being treated for osteoarthritis or rheumatoid arthritis. 2. Height 5 feet 4 inches, weight 163 pounds, BMI is 28.0. 3. Vital signs: Blood pressure 108/66, heart rate 83, respiratory rate 16, room air saturation 99%, temperature 98.6. 4. Pain intensity 11/02. 5. Fall history: The patient has not fallen in the last 3 months. 6. Blood thinner. The patient is not on a blood thinning medication. 7. Hypertension. The patient is not being treated for hypertension. 8. Opioids greater than 6 weeks. The patient is receiving medications from the pain clinic. 9. Risk assessment tool, low for opioid use. 10. Functional assessment tool reviewed. 11. Recreational drug use. The patient denies. 12. Alcohol. The patient rarely drinks alcoholic beverages. 13. Tobacco: The [place] [address] PAIN MANAGEMENT CONSULTATION Name: YANDEL CORMIER Room: [facility]#: [id number] Admission: 09/14/19 Attend Phys: Kari Macias MD Discharge: Date of : 69 Report #: [id number] PHYSICAL EXAMINATION: GENERAL: The patient is a well-developed, well-nourished white female. Appears her stated age. She is alert and oriented x 3. Her affect is appropriate. Speech is fluent. HEENT: Normocephalic, atraumatic. Extraocular eye muscles intact. Sclerae nonicteric. Mucous membranes are moist. NECK: Without adenopathy or JVD. HEART: Regular rate. ABDOMEN: Nontender. EXTREMITIES: Upper extremity muscle strength judged to be 5/5 for the major muscle groups in the upper extremity. The patient has some pain and discomfort in lower portion of her back and muscle strength judged to be 5/5 for the major muscle groups in the lower extremity. The patient has some left posterior superior iliac spine area of discomfort. IMPRESSION: 1. Myofascial pain, left low back area with increased discomfort after lifting boxes and strain in her back. 2. Fibromyalgia. 3. Breast cancer, status post radiation and bilateral mastectomy. 4. Anxiety. 5. Gastroesophageal reflux. 6. Headaches. 7. 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 8. Hypercholesterolemia. 9. Irritable bowel syndrome. 10. Nummular eczema 11. Seasonal allergies. RECOMMENDATIONS: We discussed treatment options with the patient. At this juncture, she feels her medications are helpful. She is able to think clearly. They are not causing her any problems with her sensorium. She will continue with the hydrocodone medication. A script for hydrocodone 7.5 mg 1 p.o. t.i.d. has been provided. The patient will also continue with meloxicam 15 mg 1 p.o. daily. She will continue with Bentyl 10 mg 3 times daily. She will also use omeprazole 20 mg daily. She is aware that opioid medications can become addictive. She has taken the medication as prescribed. They can become less effective as time goes on because of tolerance. <ELECTRONICALLY SIGNED> By: Kari Macias MD 09/25/19 0922 [id number]. Christian Macias MD /[facility]
== END ==
LOC: M.PC 04:13
DX: M54.5 Low back pain (principal); M79.606 Pain in leg, unspecified; M79.7 Fibromyalgia; F41.9 Anxiety disorder, unspecified; K21.9 Gastro-esophageal reflux disease without esophagitis; R51 Headache; E78.00 Pure hypercholesterolemia, unspecified; K58.9 Irritable bowel syndrome, unspecified; L30.9 Dermatitis, unspecified; J30.2 Other seasonal allergic rhinitis; Z85.3 Personal history of malignant neoplasm of breast; Z88.2 Allergy status to sulfonamides; Z79.899 Other long term (current) drug therapy; Z88.8 Allergy status to other drugs, medicaments and biological substances

== ENCOUNTER → 2019-11-09 | Outpatient (CLI) | payer OTHER ==
--- NOTE | 2019-11-23 22:53 | PAINCON ---
[address] [address] PAIN MANAGEMENT CONSULTATION Name: YANDEL CORMIER [id number] Admission: 11/09/19 Attend Phys: Kari Macias MD Discharge: Date of : 69 Report #: [id number] THIS REPORT FOR: //name// cc: Sandeep Allen MD, Tuongvan T. MD ~ THIS REPORT FOR: //name// CC: Kari Allen MD DATE OF SERVICE: 11/09/2019 CHIEF COMPLAINT: Medicines still helpful to have them renewed. HISTORY: The patient is a 54-year-old female who has been followed in the Pain Clinic because of chronic pain. She has pain involving her low back. Continues to have pain that radiates down into both legs. Notes some pain and discomfort in her feet. She rates her pain as a 6/10. She complains of some numbness and lower body on a regular basis. She has not had any significant changes since we saw her last. She does have a history of fibromyalgia. Pain is worse in the morning. She continues to work. Feels that her medications overall provide about 50% improvement in her pain. Notes that activities, temperature changes, walking, prolonged standing, sitting, climbing stairs and occasional bending and lifting can be problematic. She does find that use of her medications, heat and cold to be helpful. Rest and frequent repositioning are helpful as well. She has returned to the Pain Clinic today with hopes of having her medications renewed. She is staying as vigilant as possible because of the COVID-19 pandemic, which is upon us. She continues to work at the [employer]. ALLERGIES: SULFA AND AMOXICILLIN. CURRENT MEDICATIONS: Omeprazole 20 mg b.i.d., Zofran 4 mg p.r.n., Xanax for anxiety, ibuprofen 800 mg p.r.n., meloxicam 15 mg 1 p.o. daily, hydrocodone 7.5 mg 1 p.o. t.i.d., and Bentyl 10 mg t.i.d. PAIN CLINIC ASSESSMENT/PQRS: 1. The patient is not being treated for osteoarthritis or rheumatoid arthritis. 2. Height 5 feet 4 inches, weight 161 pounds, and BMI is 27.8. 3. Vital signs: Blood pressure 115/46, heart rate 84, respiratory rate 16, room air saturation 99%, and temperature 98.1. 4. Pain intensity, 5/10. 5. Fall history: The patient has not fallen in the last 3 months. 6. Blood thinner. The patient is not on a blood thinning medication. 7. Hypertension. The patient is not being treated for hypertension. 8. Opioids greater than 6 weeks. The patient [place] [address] PAIN MANAGEMENT CONSULTATION Name: YANDEL CORMIER Room: [facility]#: [id number] Admission: 11/09/19 Attend Phys: Kari Macias MD Discharge: Date of : 69 Report #: [id number] Clinic. 9. Risk assessment tool, low for opioid use. 10. Functional assessment tool reviewed. 11. Recreational drug use. The patient denies. 12. Alcohol: The patient rarely drinks alcoholic beverages. 13. Tobacco: The patient denies use of tobacco. PHYSICAL EXAMINATION: GENERAL: The patient is a well-developed, well-nourished white female. Appears her stated age. She is alert and oriented x 3. Her affect is appropriate. Speech is fluent. HEENT: Normocephalic, atraumatic. Extraocular eye muscles intact. Sclerae nonicteric. Mucous membranes are moist. NECK: Without adenopathy or JVD. HEART: Regular rate. LUNGS: Clear. ABDOMEN: Nontender. MUSCULOSKELETAL: Strength in the upper body 5/5 for the major muscle groups. The patient complains of some pain in her lower back with discomfort and pain that radiates down into her low back and into her legs bilaterally. Notes some discomfort in her feet. Complains of some numbness. Has some discomfort in the left posterior superior iliac spine area. IMPRESSION: 1. Myofascial pain in the back with increased discomfort with lifting boxes. 2. Fibromyalgia. 3. Breast cancer, status post radiation and bilateral mastectomy. 4. Anxiety. 5. Gastroesophageal reflux. 6. Headaches. 7. 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 8. Hypercholesterolemia. 9. Irritable bowel syndrome. 10. Nummular eczema. 11. Seasonal allergies. RECOMMENDATIONS: We discussed treatment options with the patient. At this juncture, she feels that her medications continue to be helpful. She is aware that medications can become less effective as time goes on because of development of tolerance. Overall, she feels things are going reasonably well. She feels the medications help with her pain and provide about 50% improvement. The patient does have a history of fibromyalgia, which worsens pain in the morning. 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 She is not having any problems with her sensorium. She is able to think clearly. She is able to take care of her patients without concerns. A script for her medications have been rewritten. She will continue with Bentyl 10 mg 1 p.o. t.i.d., she will also continue with [facility] [address] [place] [address] PAIN MANAGEMENT CONSULTATION Name: YANDEL CORMIER Room: [facility]#: [id number] Admission: 11/09/19 Attend Phys: Kari Macias MD Discharge: Date of : 69 Report #: [id number] hydrocodone 7.5 mg 1 p.o. b.i.d. The patient will continue with meloxicam 15 mg 1 p.o. daily. She will monitor her GI tract regarding the use of this medication. She will continue with omeprazole. We would like to thank you for letting us participate in her care. We hope she continues to improve. <ELECTRONICALLY SIGNED> By: Kari Macias MD 11/23/19 [id number]. Christian Macias MD /nt
== END ==
LOC: M.PC 04:10
PROVIDERS: ATTEND Anesthesiology Pain Medicine
DX: L30.0 Nummular dermatitis (principal); K58.9 Irritable bowel syndrome, unspecified; K21.9 Gastro-esophageal reflux disease without esophagitis; E78.00 Pure hypercholesterolemia, unspecified; R51 Headache; J30.2 Other seasonal allergic rhinitis; F41.9 Anxiety disorder, unspecified; M79.7 Fibromyalgia; C50.919 Malignant neoplasm of unspecified site of unspecified female breast

== ENCOUNTER → 2019-12-07 | Outpatient (CLI) | payer OTHER ==
[~2019-12-07] MED LIST changes: +BENTYL 10 MG CA10 MG PO
--- NOTE | 2019-12-26 15:37 | PAINCON ---
[address] [address] PAIN MANAGEMENT CONSULTATION Name: YANDEL CORMIER Sammy Room: [facility].#: [id number] Admission: 12/07/19 Attend Phys: Kari Macias MD Discharge: Date of : 69 Report #: [id number] THIS REPORT FOR: //name// cc: Sandeep Allen MD, Tuongvan T. MD ~ THIS REPORT FOR: //name// CC: Kari Allen DATE OF SERVICE: 12/07/2019 CHIEF COMPLAINT: Low back pain. HISTORY: The patient is a 54-year-old female who has been followed in the Pain Clinic. She still has pain involving her low back area. Pain can be more problematic with sitting, standing, walking, climbing stairs as well as with activity. 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 She feels that her medications at this juncture are helpful. It is not clouding her sensorium. She feels that she can execute her job without problem. She does have a history of fibromyalgia. She has returned to the Pain Clinic today for renewal of her medications. She is cognizant of the COVID-19 pandemic. She rates her pain today as a 4/10. ALLERGIES: SULFA AND AMOXICILLIN. CURRENT MEDICATIONS: Omeprazole 20 mg b.i.d., Zofran 4 mg, Xanax for anxiety, ibuprofen 800 mg p.r.n., meloxicam 15 mg 1 p.o. daily, hydrocodone 7.5 mg t.i.d., and Bentyl 10 mg t.i.d. PAIN CLINIC ASSESSMENT AND PQRS: 1. The patient is not being treated for osteoarthritis or rheumatoid arthritis. 2. Height 5 feet 4 inches, weight 160 pounds, BMI is 27. 3. Vital Signs: Blood pressure 192/69, heart rate 80, respiratory rate 16, room air saturation 99%, and temperature 98.1. 4. Pain intensity 08/03. 5. Fall history: The patient has not fallen in the last 3 months. 6. Blood thinner. The patient is not on a blood thinning medication. 7. Hypertension. The patient is not being treated for hypertension. 8. Opioids greater than 6 weeks. The patient receives medications from the Pain Clinic. 9. Risk assessment tool, low for opioid use. 10. Functional assessment tool reviewed. 11. Recreational drug use. The patient denies. 12. Alcohol: The patient rarely drinks alcoholic beverages. PHYSICAL EXAMINATION: [facility] [address] [place] [address] PAIN MANAGEMENT CONSULTATION Name: YANDEL CORMIER Sammy Room: [facility]#: [id number] Admission: 12/07/19 Attend Phys: Kari Macias MD Discharge: Date of : 69 Report #: [id number] GENERAL: The patient is a well-developed, well-nourished white female. Appears her stated age. She is alert and oriented x 3. Her affect is appropriate. Speech is fluent. HEENT: Normocephalic, atraumatic. Extraocular eye muscles intact. Sclerae nonicteric. Mucous membranes are moist. NECK: Without adenopathy or JVD. HEART: Regular rate. LUNGS: Clear. ABDOMEN: Nontender. MUSCULOSKELETAL: The patient's strength in the upper body is judged to be 5/5 for the major muscle groups in the upper extremity. The patient does have some pain and discomfort in her back with pain that radiates down into the lower portion of her back and into her legs bilaterally. Has some complaint of discomfort in her feet. Also, complains of some numbness. Has some pain and discomfort in the left posterior superior iliac spine area. IMPRESSION: 1. Myofascial pain in the back with increased discomfort when lifting. 2. Fibromyalgia. 3. Breast cancer, status post radiation and bilateral mastectomy. 4. Anxiety. 5. Gastroesophageal reflux. 6. Headaches. 7. 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 8. Hypercholesterolemia. 9. Irritable bowel syndrome. 10. Nummular eczema. 10. Seasonal allergies. RECOMMENDATIONS: We discussed treatment options with the patient. At this juncture, she feels her medications are working well. She would like to continue with their use. 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 We will continue with her medication. A script for her medications has been rewritten. She will continue with hydrocodone 7.5 mg 1 p.o. t.i.d. The patient will also continue with meloxicam 15 mg 1 p.o. daily. She will monitor her GI tract for irritation from the nonsteroidal meloxicam. She will call us if she has any concerns. We would like to thank you for letting us participate in her care. We hope she continues to improve. <ELECTRONICALLY SIGNED> By: Kari Macias MD 12/26/19 1537 [id number]. Christian Macias MD /nt
== END ==
LOC: M.PC 01:45
PROVIDERS: ATTEND Anesthesiology Pain Medicine
DX: M54.5 Low back pain (principal); M54.9 Dorsalgia, unspecified; M79.7 Fibromyalgia; F41.9 Anxiety disorder, unspecified; K21.9 Gastro-esophageal reflux disease without esophagitis; R51 Headache; E78.00 Pure hypercholesterolemia, unspecified; K58.9 Irritable bowel syndrome, unspecified; L30.9 Dermatitis, unspecified; J30.2 Other seasonal allergic rhinitis; Z86.19 Personal history of other infectious and parasitic diseases; Z85.3 Personal history of malignant neoplasm of breast; Z92.3 Personal history of irradiation

== ENCOUNTER → 2020-01-04 | Outpatient (CLI) | payer OTHER ==
--- NOTE | 2020-01-18 08:38 | PAINCON ---
[facility] [address] [place] [address] PAIN MANAGEMENT CONSULTATION Name: CORMIERYANDEL C Room: [facility].#: [id number] Admission: 01/04/20 Attend Phys: Kari Macias MD Discharge: Date of : 69 Report #: [id number] THIS REPORT FOR: //name// cc: Sandeep Allen MD, Tuongvan T. MD ~ THIS REPORT FOR: //name// CC: Kari Allen DATE OF SERVICE: 01/04/2020 CHIEF COMPLAINT: Chronic low back pain. HISTORY: The patient is a 54-year-old female who has been followed in the Pain Clinic because of chronic low back pain. She notes that pain can be problematic with activities of daily living. 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 She rates her pain today as a 4/10. She does feel that these medications are beneficial. She has taken the medication as prescribed. There were no complications. 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 ALLERGIES: SULFA AND AMOXICILLIN. CURRENT MEDICATIONS: Omeprazole 20 mg b.i.d., Zofran 4 mg, Xanax for anxiety, ibuprofen 800 mg p.r.n., meloxicam 15 mg 1 p.o. daily, hydrocodone 7.5 mg t.i.d., and Bentyl 10 mg t.i.d. PAIN CLINIC ASSESSMENT AND PQRS: 1. The patient is not being treated for osteoarthritis or rheumatoid arthritis. 2. Height 5 feet 4 inches, weight 160 pounds, BMI is 27. 3. Vital Signs: Blood pressure 104/60, heart rate 67, respiratory rate 14, room air saturation 100%. 4. Temperature 98.2. 5. Pain score 4/10. 6. Fall history: The patient has not fallen in the last 3 months. 7. Blood thinner. The patient is not on a blood thinning medication. 8. Hypertension. The patient is not being treated for hypertension. 9. Opioids greater than 6 weeks. The patient is not receiving medications from her primary, but receives them from the Pain Clinic. 10. Risk assessment tool, low for opioid use. 11. Functional assessment tool reviewed. 12. Recreational drug use: The patient denied. 13. Alcohol: The patient rarely drinks alcoholic beverages. PHYSICAL EXAMINATION: [place] [address] PAIN MANAGEMENT CONSULTATION Name: YANDEL CORMIER Room: [facility]#: [id number] Admission: 01/04/20 Attend Phys: Kari Macias MD Discharge: Date of : 69 Report #: [id number] GENERAL: The patient is a well-developed, well-nourished white female. Appears her stated age. She is alert and oriented x 3. Her affect is appropriate. Speech is fluent. HEENT: Normocephalic, atraumatic. Extraocular eye muscles intact. Sclerae nonicteric. Mucous membranes are moist. The patient is wearing a facial covering. NECK: Without adenopathy or JVD. LUNGS: Clear. ABDOMEN: Nontender. MUSCULOSKELETAL: The patient's upper body strength is 5/5 for the major muscle groups. The patient does have some pain and discomfort in her back that radiates down to the lower portion of her back and down into her legs bilaterally. She complains of discomfort in her feet. Also, complains of some numbness. Has some discomfort in the area of the posterior superior iliac spine. IMPRESSION: 1. Myofascial pain in the back with discomfort when lifting. 2. Fibromyalgia. 3. Breast cancer, status post radiation and bilateral mastectomy. 4. Anxiety. 5. Gastroesophageal reflux. 6. Headaches. 7. 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 8. Hypercholesterolemia. 9. Irritable bowel syndrome. 10. ____ eczema. 11. Seasonal allergies. RECOMMENDATIONS: We discussed treatment options with the patient. At this juncture, she will continue with her medications. She feels her medications are working well. 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 A script for her medications has been rewritten. The patient will continue with hydrocodone 7.5 mg 1 p.o. t.i.d. She will also continue with meloxicam. She will monitor her GI tract for the use of nonsteroidals. She will call us if she has any concerns. A script for her medications has been sent to her pharmacy. We would like to thank you for letting us participate in her care. We hope she continues to improve. Two months of medications have been provided. <ELECTRONICALLY SIGNED> By: Kari Macias MD 01/18/20 0838 [id number]. Christian Macias MD /avi
== END ==
LOC: M.PC 09:30
PROVIDERS: ATTEND Anesthesiology Pain Medicine
DX: M54.5 Low back pain (principal); G89.29 Other chronic pain; M79.10 Myalgia, unspecified site; M79.7 Fibromyalgia; F41.9 Anxiety disorder, unspecified; K21.9 Gastro-esophageal reflux disease without esophagitis; I10 Essential (primary) hypertension; E78.00 Pure hypercholesterolemia, unspecified; K58.9 Irritable bowel syndrome, unspecified; L30.9 Dermatitis, unspecified; J30.2 Other seasonal allergic rhinitis; Z85.3 Personal history of malignant neoplasm of breast; Z92.3 Personal history of irradiation; Z90.13 Acquired absence of bilateral breasts and nipples; Z88.8 Allergy status to other drugs, medicaments and biological substances; Z79.899 Other long term (current) drug therapy

== ENCOUNTER → 2020-02-29 | Outpatient (CLI) | payer OTHER ==
--- NOTE | 2020-03-28 14:42 | PAINCON ---
[facility] [address] [place] [address] PAIN MANAGEMENT CONSULTATION Name: YANDEL CORMIER Room: [facility]#: [id number] Admission: 02/29/20 Attend Phys: Kari Macias MD Discharge: Date of : 69 Report #: [id number] THIS REPORT FOR: //name// cc: Sandeep Allen MD, Tuongvan T. MD ~ CC: Kari Allen DATE OF SERVICE: 02/29/2020 CHIEF COMPLAINT: Continued chronic low back pain. HISTORY: The patient is a 54-year-old female who has been followed in the Pain Clinic because of chronic pain. She has pain, which is quite problematic. It involves her low back area. 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 Pain is in the base of her low back and radiates down into both legs. She feels that the hydrocodone medication is efficacious. Walking, sitting, standing, climbing stairs are effective because of the pain. Feels that use of heat, cold, rest, and medications are beneficial and she would like to continue their use. She does not have any problems with thinking. 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 ALLERGIES: SULFA, AMOXICILLIN. CURRENT MEDICATIONS: Omeprazole 20 mg b.i.d., Zofran 4 mg, Xanax for anxiety, ibuprofen 800 mg p.r.n., Meloxicam 15 mg 1 p.o. daily, hydrocodone 7.5 mg t.i.d., and Bentyl 10 mg t.i.d. PAIN CLINIC ASSESSMENT AND PQRS: 1. The patient is not being treated for osteoarthritis or rheumatoid arthritis. 2. Height 5 feet 4 inches, weight 164 pounds, BMI is 28. 3. Vital signs: Blood pressure 109/60, heart rate 80, respiratory rate 16, room air saturation 99%, and temperature 97.8. 4. Pain intensity /10. 5. Fall history: The patient has not fallen in the last 3 months. 6. Blood thinner. The patient is not on a blood thinning medication. 7. Hypertension. The patient is not being treated for hypertension. 8. Opioids greater than 6 weeks. The patient receives medication from one source, the primary physician. 9. Risk assessment tool, low for opioid. 10. Functional assessment tool reviewed. 11. Recreational drug use: The patient denies. 12. Alcohol, the patient rarely drinks alcoholic beverages. PHYSICAL EXAMINATION: [address] [place] [address] PAIN MANAGEMENT CONSULTATION Name: CORMIERYANDEL Room: [facility]#: [id number] Admission: 02/29/20 Attend Phys: Kari Macias MD Discharge: Date of : 69 Report #: [id number] GENERAL: The patient is a well-developed, well-nourished white female. Appears her stated age. She is alert and oriented x 3. Her affect is appropriate. Speech is fluent. HEENT: Normocephalic, atraumatic. Extraocular eye muscles intact. Sclerae nonicteric. Mucous membranes are moist. The patient is wearing a facial covering. NECK: Without adenopathy or JVD. LUNGS: Clear to auscultation. ABDOMEN: Nontender. MUSCULOSKELETAL: The patient has upper body strength 5/5 for the major muscle groups in the upper extremity. The patient complains of some pain and discomfort in lower portion of her back. The pain that radiates down into both legs bilaterally. Also, complains of some pain in her feet. She has some numbness. She has some discomfort in the posterior superior iliac spine area. IMPRESSION: 1. Myofascial pain in the low back area with discomfort with lifting. 2. Fibromyalgia. 3. Breast cancer, status post radiation and bilateral mastectomy. 4. Anxiety. 5. Gastroesophageal reflux. 6. Headaches. 7. 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 8. Hypercholesterolemia. 9. Irritable bowel syndrome. 10. History of eczema. 11. Seasonal allergic reaction. RECOMMENDATIONS: We discussed treatment options with the patient. At this juncture, we will continue with her medications. She feels that the medications are helpful, colder weather has increased her pain. Overall, she feels that things are about 50% improved with current medical regimen. She is aware that opioid medications can become problematic for certain people. She has not shown any signs of addiction. She has taken the medication as prescribed. 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 A script for the hydrocodone 7.5 mg 1 p.o. has been reviewed. The patient has also been given medications. A script for Meloxicam 15 mg 1 p.o. She will monitor GI tract because of the nonsteroidal effects of steroids on the GI tract. We would like to thank you for letting us participate in her care. Her scripts have been called to her pharmacy. <ELECTRONICALLY SIGNED> By: Kari Macias MD 03/28/20 1442 [id number]. Christian Macias MD /nt
== END ==
LOC: M.PC 08:45
PROVIDERS: ATTEND Anesthesiology Pain Medicine
DX: M54.5 Low back pain (principal)

== ENCOUNTER → 2020-04-23 | Outpatient (CLI) | payer OTHER | LOC: M.PC 09:14 | PROVIDERS: ATTEND Anesthesiology Pain Medicine | DX: G89.29 Other chronic pain (principal); M54.5 Low back pain; M79.7 Fibromyalgia; K21.9 Gastro-esophageal reflux disease without esophagitis; F41.9 Anxiety disorder, unspecified; R51.9 Headache, unspecified; E78.00 Pure hypercholesterolemia, unspecified; K58.9 Irritable bowel syndrome, unspecified; Z88.8 Allergy status to other drugs, medicaments and biological substances; Z68.27 Body mass index [BMI] 27.0-27.9, adult; Z85.3 Personal history of malignant neoplasm of breast; Z90.13 Acquired absence of bilateral breasts and nipples; Z92.3 Personal history of irradiation; Z79.891 Long term (current) use of opiate analgesic ==

== ENCOUNTER → 2020-06-18 | Outpatient (CLI) | payer OTHER | LOC: M.PC 08:34 | PROVIDERS: ATTEND Anesthesiology Pain Medicine | DX: M79.18 Myalgia, other site (principal); K21.9 Gastro-esophageal reflux disease without esophagitis; F41.9 Anxiety disorder, unspecified; R51.9 Headache, unspecified; Z87.898 Personal history of other specified conditions; E78.00 Pure hypercholesterolemia, unspecified; K58.9 Irritable bowel syndrome, unspecified ==

== ENCOUNTER → 2020-08-13 | Outpatient (CLI) | payer OTHER | LOC: M.PC 08:49 | PROVIDERS: ATTEND Anesthesiology Pain Medicine | DX: M54.5 Low back pain (principal); M79.605 Pain in left leg; M79.7 Fibromyalgia; F41.9 Anxiety disorder, unspecified; K21.9 Gastro-esophageal reflux disease without esophagitis; K58.9 Irritable bowel syndrome, unspecified; R51.9 Headache, unspecified; E78.00 Pure hypercholesterolemia, unspecified; J30.2 Other seasonal allergic rhinitis; Z85.3 Personal history of malignant neoplasm of breast ==

== ENCOUNTER → 2020-10-08 | Outpatient (CLI) | payer OTHER | LOC: M.PC 08:56 | PROVIDERS: ATTEND Anesthesiology Pain Medicine | DX: M79.7 Fibromyalgia (principal); Z85.3 Personal history of malignant neoplasm of breast; F41.9 Anxiety disorder, unspecified; K21.9 Gastro-esophageal reflux disease without esophagitis; E78.00 Pure hypercholesterolemia, unspecified; K58.9 Irritable bowel syndrome, unspecified; J30.2 Other seasonal allergic rhinitis; Z87.42 Personal history of other diseases of the female genital tract ==

== ENCOUNTER → 2020-12-03 | Outpatient (CLI) | payer OTHER | LOC: M.PC 08:51 | PROVIDERS: ATTEND Anesthesiology Pain Medicine | DX: M79.7 Fibromyalgia (principal); K21.9 Gastro-esophageal reflux disease without esophagitis; R51.9 Headache, unspecified; E78.00 Pure hypercholesterolemia, unspecified; F41.9 Anxiety disorder, unspecified; Z79.899 Other long term (current) drug therapy; Z79.891 Long term (current) use of opiate analgesic ==

== ENCOUNTER → 2021-01-28 | Outpatient (CLI) | payer OTHER ==
[~2021-01-28] MED LIST changes: +MEDROLDOSEPACK PO
== END ==
LOC: M.PC 08:51
PROVIDERS: ATTEND Anesthesiology Pain Medicine
DX: M54.50 Low back pain, unspecified (principal); M79.605 Pain in left leg; M54.2 Cervicalgia; M79.7 Fibromyalgia; F41.9 Anxiety disorder, unspecified; K21.9 Gastro-esophageal reflux disease without esophagitis; R51.9 Headache, unspecified; E78.00 Pure hypercholesterolemia, unspecified; K58.0 Irritable bowel syndrome with diarrhea; J30.2 Other seasonal allergic rhinitis; Z90.13 Acquired absence of bilateral breasts and nipples; Z85.3 Personal history of malignant neoplasm of breast

== ENCOUNTER → 2021-03-25 | Outpatient (CLI) | payer OTHER ==
[~2021-03-25] MED LIST changes: +OMEPRAZOLE40 MG PO
== END ==
LOC: M.PC 08:34
PROVIDERS: ATTEND Anesthesiology Pain Medicine
DX: M54.50 Low back pain, unspecified (principal); M54.2 Cervicalgia; M79.7 Fibromyalgia; F41.9 Anxiety disorder, unspecified; K21.9 Gastro-esophageal reflux disease without esophagitis; R51.9 Headache, unspecified; E78.00 Pure hypercholesterolemia, unspecified; K58.9 Irritable bowel syndrome, unspecified; J30.2 Other seasonal allergic rhinitis; Z79.899 Other long term (current) drug therapy; Z85.3 Personal history of malignant neoplasm of breast

== ENCOUNTER → 2021-05-20 | Outpatient (CLI) | payer OTHER | LOC: M.PC 08:39 | PROVIDERS: ATTEND Anesthesiology Pain Medicine | DX: M54.2 Cervicalgia (principal); M79.605 Pain in left leg; M54.50 Low back pain, unspecified; M79.7 Fibromyalgia; K21.9 Gastro-esophageal reflux disease without esophagitis; R51.9 Headache, unspecified; E78.00 Pure hypercholesterolemia, unspecified; K58.8 Other irritable bowel syndrome; Z85.3 Personal history of malignant neoplasm of breast; Z90.13 Acquired absence of bilateral breasts and nipples; Z88.8 Allergy status to other drugs, medicaments and biological substances; Z79.899 Other long term (current) drug therapy ==